=== PATIENT | female | born 1990 | race American Indian/Alaskan Native ===

== ENCOUNTER 2017-01-23 11:40 | Emergency (ER) | payer MEDICAID ==
[~2017-01-23] VITALS: Ht 167.6 cm; Wt 68.0 kg
[~2017-01-23 11:40] MED LIST: CYCL-36 PO; IBUP600 PO; LORTA5 PO; TRAM50TA PO
[2017-01-23 11:43] VITALS: BP 152/99; PULSE 111; RESP 24; TEMP 99.5; O2SAT 95
[2017-01-23] MEDS ORDERED: SODIUM CHLOR 0.9% 1000 ML INJ 1,000 ML IV SCH (11:53)
[2017-01-23] MEDS ORDERED: CYCL1TAB29 PO (11:55)
[2017-01-23] MEDS ORDERED: TRAM50TA PO ×2 (11:55→17:23)
[2017-01-23] MEDS ORDERED: SODIUM CHLORIDE 0.9% FLUSH 5 ML FLUSH IVF PRN (12:00)
[2017-01-23] MEDS ORDERED: MORPHINE SULFATE 4 MG/ML INJ IV PUSH ONE (12:00)
[2017-01-23] MEDS ORDERED: ONDANSETRON HCL 4 MG/2 ML VIAL IVP ONE (12:00)
[2017-01-23 12:06] VITALS: O2SAT 100
[2017-01-23 12:14] VITALS: BP 152/99; PULSE 80; RESP 22; O2SAT 97
--- NOTE | 2017-01-23 12:16 | PD ---
HPI Chief Complaint: Abdominal Pain Time Seen by Provider: 12:02 Travel History International Travel<30 days: No Contact w/Intl Traveler<30days: No Traveled to known affect area: No History of Present Illness HPI 26-year-old female with history of IBS, GERD, uterine fibroids presents to the ED for evaluation of less than 3 hour history of sudden onset 10/10, cramping lower abdominal pain. Accompanied by diaphoresis and nausea. Patient states that she was at work when the symptoms began. She states she was feeling fine beforehand, ate breakfast around 8 am. She denies fever, chills, changes in bowel habits, dysuria, back pain, vaginal discharge or odor. Patient uses Depo Provera contraception, states that she hasn't had a period in over a year. She endorses vaginal bleeding accompanying the pain today. Patient endorses similar episodes of pain when she was diagnosed with fibroids. Patient is followed by Dr. Sam, lab support service tech, in [place]. Last visit in November for Depo injection. PFSH Past Medical History Anxiety: Yes Cerebrovascular Accident: Yes Diminished Hearing: No Gastrointestinal Disorders: Yes (IBS) GERD: Yes Kidney Stones: Yes Reproductive: Yes (UTERINE FIBROID) Immunizations Current: Yes Myocardial Infarction: No (STATES SHE HAD ONE A YEAR AGO, EVAC STATES SENT TO PRIMARY AND PSYCH) Tetanus Vaccination: > 5 Years Influenza Vaccination: No ?: Not LMP: one year ago Para: 3 : 2 Ovarian Cysts: Yes Past Surgical History Abdominal Surgery: Yes (EX LAP) Social History Alcohol Use: Yes (OCCASIONALLY) Tobacco Use: Yes Substance Use: Yes (SMOKES MARIJUANA) Allergies-Medications (Allergen,Severity, Reaction): Coded Allergies: No Known Allergies (Unverified , 01/23/17) Reported Meds & Prescriptions Reported Meds & Active Scripts Active Tramadol (Tramadol HCl) 50 Mg Tab 50 Mg PO Q8H PRN Zofran Odt (Ondansetron Odt) 4 Mg Tab 4 Mg SL Q12HR PRN Reported Depo-Provera Inj (Medroxyprogesterone Inj) 150 Mg/Ml Inj 150 Mg IM Q90D Tramadol (Tramadol HCl) 50 Mg Tab 50 Mg PO BID PRN Flexeril (Cyclobenzaprine HCl) 10 Mg Tab 10 Mg PO BID Review of Systems Except as stated in HPI: all other systems reviewed are Neg Physical Exam Narrative GENERAL: Well-nourished, well-developed tearful, retching female sitting partially upright on the stretcher. SKIN: Cool and diaphoretic. HEAD: Normocephalic. EYES: No scleral icterus. No injection or drainage. DENTAL: Poor dentition. Erosion and dental caries of the visible teeth. NECK: Supple, trachea midline. No JVD or lymphadenopathy. CARDIOVASCULAR: Regular rate and rhythm without murmurs, gallops, or rubs. RESPIRATORY: Breath sounds clear and equal bilaterally. No accessory muscle use. GASTROINTESTINAL: Abdomen soft, nondistended. Active bowel sounds. TTP in the LLQ and suprapubic area. Suprapubic tenderness is absent when distraction. No palpable masses. No guarding. GENITOURINARY: Normal external genitalia without lesions or erythema. Vaginal vault with scant blood. No drainage. No visible vaginal tear. Cervical os was closed without drainage. No cervical motion tenderness. Uterus TENDER and nonenlarged. Bilateral adnexa nontender without palpable masses. MUSCULOSKELETAL: No cyanosis, or edema. BACK: Nontender without obvious deformity. No CVA tenderness. Data Data Last Documented VS Vital Signs Date Time Temp Pulse Resp B/P Pulse Ox O2 Delivery O2 Flow Rate FiO2 01/23/17 17:26 55 18 127/67 97 01/23/17 13:49 Room Air 01/23/17 11:43 99.5 Orders Complete Blood Count With Diff (01/23/17 11:53) Comprehensive Metabolic Panel (01/23/17 11:53) Lipase (01/23/17 11:53) Lactic Acid (01/23/17 11:53) Prothrombin Time / Inr (Pt) (01/23/17 11:53) Act Partial Throm Time (Ptt) (01/23/17 11:53) Urinalysis - C+S If Indicated (01/23/17 11:53) Ct Abd/Pel W Iv Contrast(Rout) (01/23/17 11:53) Iv Access Insert/Monitor (01/23/17 11:53) Ecg Monitoring (01/23/17 11:53) Oximetry (01/23/17 11:53) Morphine Inj (Morphine Inj) (01/23/17 12:00) Ondansetron Inj (Zofran Inj) (01/23/17 12:00) Sodium Chlor 0.9% 1000 Ml Inj (Ns 1000 M (01/23/17 11:53) Sodium Chloride 0.9% Flush (Ns Flush) (01/23/17 12:00) Ed Urine Pregnancytest Poc (01/23/17 11:53) Hydromorphone Pf Inj (Dilaudid Pf Inj) (01/23/17 12:30) Iohexol 350 Inj (Omnipaque 350 Inj) (01/23/17 14:18) Gc And Chlamydia Pcr (01/23/17 14:40) Wet Prep Profile (01/23/17 14:40) Lactic Acid (01/23/17 14:44) Ondansetron Inj (Zofran Inj) (01/23/17 15:00) Oxycodone-Acetamin 5-325 Mg (Percocet (01/23/17 15:00) NPO (01/23/17 14:55) Us Pelvis Comp W Dop Transvag (01/23/17 14:32) Labs Laboratory Tests Test 01/23/17 01/23/17 01/23/17 12:00 12:40 14:50 White Blood Count 7.3 TH/MM3 Red Blood Count 4.57 MIL/MM3 Hemoglobin 13.6 GM/DL Hematocrit 40.1 % Mean Corpuscular Volume 87.8 FL Mean Corpuscular Hemoglobin 29.8 PG Mean Corpuscular Hemoglobin 34.0 % Concent Red Cell Distribution Width 12.6 % Platelet Count 297 TH/MM3 Mean Platelet Volume 7.8 FL Neutrophils (%) (Auto) 44.9 % Lymphocytes (%) (Auto) 45.5 % Monocytes (%) (Auto) 7.6 % Eosinophils (%) (Auto) 1.6 % Basophils (%) (Auto) 0.4 % Neutrophils # (Auto) 3.3 TH/MM3 Lymphocytes # (Auto) 3.3 TH/MM3 Monocytes # (Auto) 0.6 TH/MM3 Eosinophils # (Auto) 0.1 TH/MM3 Basophils # (Auto) 0.0 TH/MM3 CBC Comment DIFF FINAL Differential Comment Prothrombin Time 11.2 SEC Prothromb Time International 1.0 RATIO Ratio Activated Partial 27.4 SEC Thromboplast Time Sodium Level 142 MEQ/L Potassium Level 3.6 MEQ/L Chloride Level 108 MEQ/L Carbon Dioxide Level 24.2 MEQ/L Anion Gap 10 MEQ/L Blood Urea Nitrogen 9 MG/DL Creatinine 0.80 MG/DL Estimat Glomerular Filtration 85 ML/MIN Rate Random Glucose 82 MG/DL Lactic Acid Level 2.8 mmol/L 1.1 mmol/L Calcium Level 9.4 MG/DL Total Bilirubin 0.4 MG/DL Aspartate Amino Transf 20 U/L (AST/SGOT) Alanine Aminotransferase 25 U/L (ALT/SGPT) Alkaline Phosphatase 105 U/L Total Protein 8.2 GM/DL Albumin 4.3 GM/DL Lipase 108 U/L Urine Color LIGHT-YELLOW Urine Turbidity CLEAR Urine pH 6.5 Urine Specific [place] 1.006 Urine Protein NEG mg/dL Urine Glucose (UA) NEG mg/dL Urine Ketones NEG mg/dL Urine Occult Blood TRACE Urine Nitrite NEG Urine Bilirubin NEG Urine Urobilinogen LESS THAN 2.0 MG/DL Urine Leukocyte Esterase NEG Urine RBC 1 /hpf Urine WBC LESS THAN 1 /hpf Urine Squamous Epithelial <1 /hpf Cells Microscopic Urinalysis Comment CULT NOT INDICATED Clue Cells (Wet Prep) NONE SEEN Vaginal Trichomonas (Wet Prep) NONE SEEN Vaginal Yeast (Wet Prep) NONE SEEN MDM Medical Decision Making Medical Screen Exam Complete: Yes Emergency Medical Condition: Yes Medical Record Reviewed: Yes Differential Diagnosis bowel obstruction versus ovarian torsion versus ruptured ovarian cyst versus Mittelsmerz versus vaginal tear versus cystocele versus malingering versus other Narrative Course 26-year-old female with history of uterine fibroids presents to the ED by private car for evaluation of less than 3 hour history of sudden onset 10/10, crampy lower abdominal pain. Accompanied by diaphoresis and nausea. She denies fever, chills, changes in bowel habits, dysuria, back pain, vaginal discharge or odor. Ate breakfast at 8 am. Patient uses Depo Provera contraception, LMP over a year ago. She endorses vaginal bleeding accompanying the pain today. Patient endorses similar episodes of pain when she was diagnosed with fibroids. Vitals reviewed. The patient is tachycardic on presentation, resolved in exam room. On exam the patient is sitting partially upright on the stretcher, tearful , retching. Skin is cool and diaphoretic. No appreciable M/R/G, breath sounds clear and equal bilaterally. Abdomen soft, nondistended, active bowel sounds. Tenderness to palpation of the left lower quadrant and suprapubic area which is absent with distraction. No palpable masses. No guarding. Normal external genitalia without lesions or erythema. Vaginal vault with scant blood. No drainage. Cervical os closed without drainage. No cervical motion tenderness. Uterus TENDER and nonenlarged. Bilateral adnexa nontender without palpable masses. IV was established. Patient was placed on continuous monitoring. She was administered a liter of saline, IV morphine and Zofran. Approximately 10 minutes later patient began to complain that her pain had returned. She states , "Morphine doesn't do shit for me." She was administered 0.5 mg of Dilaudid. CBC: WBC 7.3, Hgb 13.6. INR 1.0. CMP unremarkable. Lactic acid 2.8. Repeat 1.1 Lipase 108. Bedside urine test negative. UA: No culture indicated. Wet prep: Negative GC/Chlamydia: pending CT of abdomen: At least one small uterine fibroid likely. No significant fluid , hemorrhage seen in the uterine cavity. The rest of the CT of the abdomen and pelvis is normal per radiology read. US of the pelvis: Uterine leiomyoma measuring 2.2 cm. No definite torsion per radiology read. CT of the abdomen was delayed due to an incoming trauma. Given the negative CT scan, ultrasound of the pelvis was ordered to rule out ovarian torsion. Patient complains of continued nausea and pain. She was administered IV Toradol and 5 mg Lortab PO to supplement previously administered IV medications. I offered the patient empiric treatment of GC and chlamydia, which she declined. Unsure of the cause of her abdominal pain, but I life threatening sources have been investigated and ruled out. Prescribed a few doses of Zofran and a short course of 50 mg Toradol. The patient is instructed to follow up with the lab support service tech this week. She was cautioned not to drive while taking narcotics pain meds. She was provided a copy of her radiological studies. She indicated understanding of the instructions and is amenable to the plan of care. The patient is stable and discharged home. Diagnosis Primary Impression: Lower abdominal pain, unspecified Referrals: Kinesiologist Patient Instructions: Abdominal Pain (ED), General Instructions Additional Instructions: Rest, hydrate. Take pain and nausea medications as prescribed. Do not drive while taking pain medications. Follow up with the lab support service tech this week. Return to the ED for any urgent or emergent medical condition. Med/Other Pt SpecificInfo: Prescription(s) given Scripts Tramadol 50 Mg Tab50 Mg PO Q8H PRN (PAIN) #15 TAB Ref 0 Prov:Garth Dash MD 01/23/17 Ondansetron Odt (Zofran Odt)4 Mg Tab4 Mg SL Q12HR PRN (Nausea/Vomiting) #5 TAB Ref 0 Prov:Garth Dash MD 01/23/17 Disposition: 01 DISCHARGE HOME Condition: Stable Natalia Gamez Jan 23, 2017 12:16
[2017-01-23 12:18] LABS: AUTOMATED NEUTROPHIL # 3.3 TH/MM3 (1.8-7.7); BASOPHIL % 0.4 % (0.0-2.0); EOSINOPHIL # 0.1 TH/MM3 (0-0.4); EOSINOPHIL % 1.6 % (0.0-4.0); HEMATOCRIT 40.1 % (35.0-46.0); HEMO FLAGS DIFF FINAL; LYMPH % 45.5 % (9.0-44.0); LYMPHOCYTE # 3.3 TH/MM3 (1.0-4.8); MEAN CELL VOLUME 87.8 FL (80.0-100.0); MEAN CORPUSCULAR HEMOGLOBIN 29.8 PG (27.0-34.0); MONO % 7.6 % (0.0-8.0); NEUT % 44.9 % (16.0-70.0); PLATELET COUNT 297 TH/MM3 (150-450); RED BLOOD COUNT 4.57 MIL/MM3 (4.00-5.30); RED CELL DISTRIBUTION WIDTH 12.6 % (11.6-17.2); WHITE BLOOD COUNT 7.3 TH/MM3 (4.0-11.0)
[2017-01-23 12:28] LABS: APTT (PATIENT) 27.4 SEC (24.3-30.1); PROTHROMBIN TIME - PATIENT 11.2 SEC (9.8-11.6)
[2017-01-23] MEDS ORDERED: HYDROmorphone HCL PF 1 MG/ML VIAL IV PUSH ONE (12:30)
[2017-01-23 12:31] LABS: ANION GAP 10 MEQ/L (5-15); AST (GOT) 20 U/L (15-37); BICARBONATE 24.2 MEQ/L (21.0-32.0); BLOOD UREA NITROGEN 9 MG/DL (7-18); CHLORIDE 108 MEQ/L (98-107); GLOMERULAR FILTRATION RATE 85 ML/MIN (>89); POTASSIUM 3.6 MEQ/L (3.5-5.1); SODIUM (NA) 142 MEQ/L (136-145)
[2017-01-23 12:34] LABS: ALKALINE PHOSPHATASE 105 U/L (45-117); ALT (GPT) 25 U/L (10-53); TOTAL BILIRUBIN ADULT 0.4 MG/DL (0.2-1.0)
[2017-01-23] MEDS ORDERED: DEPO150I IM (12:45)
[2017-01-23 12:55] LABS: BLOOD, URINE TRACE (NEG); GLUCOSE,URINE NEG (NEG); KETONE, URINE NEG (NEG); NITRITE,URINE NEG (NEG); PH, URINE 6.5 (5.0-8.5); SQUAMOUS EPITHELIAL CELL URINE <1 /hpf (0-5); URINE COLOR LIGHT-YELLOW (YELLW/STRAW)
[2017-01-23 12:58] VITALS: BP 111/59; PULSE 57; RESP 18; O2SAT 100
[2017-01-23 13:33] LABS: COMMENT (UR) CULT NOT INDICATED; CULTURE IF INDICATED CULT NOT INDICATED
[2017-01-23 13:49] VITALS: BP 112/72; PULSE 67; RESP 18; O2SAT 98
[2017-01-23] MEDS ORDERED: IOHEXOL 350 MG/ML 10 ML VIAL (for RAD DIAG) IV ONE (14:18)
--- NOTE | 2017-01-23 14:30 | RADRPT ---
EXAM DATE/TIME: 01/23/2017 14:02 [facility] COMPARISON: US PELVIS,COMP,W DOPLR, TRANS VAG, September 20, 2016, 14:01. CT ABDOMEN & PELVIS W/O CONTRAST, Octobe r 2015, 12:42. CT ABDOMEN & PELVIS W CONTRAST, February 19, 2016, 15:17. INDICATIONS : Lower abdomen pain with vaginal bleedind. History of fibroids. IV CONTRAST: 95 cc Omnipaque 350 (iohexol) IV ORAL CONTRAST: No oral contrast ingested. RADIATION DOSE: 6.81 CTDIvol (mGy) MEDICAL HISTORY : Cerebrovascular disease. Fibroids SURGICAL HISTORY : None. ENCOUNTER: Initial ACUITY: 1 day PAIN SCALE: 10/10 LOCATION: Bilateral lower abdomen TECHNIQUE: Volumetric scanning of the abdomen and pelvis was performed. Using automated exposure control and ad justment of the mA and/or kV according to patient size, radiation dose was kept as low as reasonably achievable to obtain optimal diagnostic quality images. FINDINGS: LOWER LUNGS: The visualized lower lungs are clear. LIVER: Homogeneous density without lesion. There is no dilation of the biliary tree. No calcified gallston es. SPLEEN: Normal size without lesion. PANCREAS: Within normal limits. KIDNEYS: Normal in size and shape. There is no mass, stone or hydronephrosis. ADRENAL GLANDS: Within normal limits. VASCULAR: There is no aortic aneurysm. BOWEL/MESENTERY: The stomach, small bowel, and colon demonstrate no acute abnormality. There is no free intraperitone al air or fluid. ABDOMINAL WALL: Within normal limits. RETROPERITONEUM: There is no lymphadenopathy. BLADDER: No wall thickening or mass. REPRODUCTIVE: Within normal limits. INGUINAL: 2.7 cm fibroid suspected left fundus. No fluid/hemorrhage seen in the uterine cavity. There is no cj e fluid in the pelvic cul-de-sac. MUSCULOSKELETAL: Within normal limits for patient age. CONCLUSION: At least one small uterine fibroid likely. No significant fluid/hemorrhage seen in the uterine cavity . The rest of the CT of the abdomen and pelvis is normal. Harrison Rollins MD on January 23, 2017 at 14:26 Board Certified Radiologist. This report was verified electronically.
[2017-01-23] MEDS ORDERED: oxyCODONE/ACETAMINOPHEN 5 MG/325 MG TAB PO ONE (15:00)
[2017-01-23] MEDS ORDERED: ONDANSETRON HCL 4 MG/2 ML VIAL IV PUSH ONE (15:00)
--- NOTE | 2017-01-23 17:16 | RADRPT ---
EXAM DATE/TIME: 01/23/2017 16:17 [facility] COMPARISON: No previous studies available for comparison. INDICATIONS : Pelvic pain. MEDICAL HISTORY : Gastroesophageal reflux disease. . Renal calculi. Uterine fibroid. Cerebrovascular accident. Ovarian cyst. x 2. Anxiety. SURGICAL HISTORY : Exploratory laparotomy. ENCOUNTER: Subsequent ACUITY: 1 day PAIN SCORE: 9/10 LOCATION: Bilateral pelvis MEASUREMENTS: UTERUS: 7.8 x 5.8 x 4.1 cm ENDOMETRIAL STRIPE: 2 mm RIGHT OVARY: 3.9 x 1.8 x 1.5 cm LEFT OVARY: 3.3 x 1.5 x 1.5 cm FINDINGS: UTERUS: The myometrium has homogeneous echotexture hypoechoic lesion measuring 22 x 20 x 15 mm in the lower u terine segment. RIGHT OVARY: Ovary contains no mass or significant cystic lesion. Normal flow. LEFT OVARY: Ovary contains no mass or significant cystic lesion. Normal flow. MISCELLANEOUS: No free fluid. CONCLUSION: 1. Uterine leiomyoma measuring 2.2 cm. 2. No definite torsion. Lokesh Diehl MD on January 23, 2017 at 17:10 Board Certified Radiologist. This report was verified electronically.
[2017-01-23] MEDS ORDERED: ZOFR4TAB3 SL (17:23)
[2017-01-23 17:26] VITALS: BP 127/67
[2017-01-23 22:18] LABS: CHLAMYDIA PCR NOT DETECTED (NOT DETECT); NEISSERIA PCR NOT DETECTED (NOT DETECT)
== END 2017-01-23 18:15 | disposition home or self-care (01) ==
LOC: NEPC 11:40
DX: R10.30 Lower abdominal pain, unspecified (principal); D25.9 Leiomyoma of uterus, unspecified; F12.10 Cannabis abuse, uncomplicated; Z72.0 Tobacco use; Z86.73 Personal history of transient ischemic attack (TIA), and cerebral infarction without residual deficits; Z87.442 Personal history of urinary calculi
CPT/HCPCS: 74177; 76830; 76856; 80053; 81001; 83605; 83690; 84703; 85025; 85610; 85730; 87210; 87491; 87591; 93975; 96361; 96374; 96375; 96376; 99284; J1170; J2270; J2405; J7030; Q9967

== ENCOUNTER 2017-03-05 04:15 | Emergency (ER) | payer MEDICAID, OTHER ==
[~2017-03-05] VITALS: Ht 167.6 cm; Wt 68.0 kg
[~2017-03-05 04:15] MED LIST changes: -CYCL-36 PO; +CYCL1TAB29 PO; +DEPO150I IM; -IBUP600 PO; -LORTA5 PO; +ZOFR4TAB3 SL
[2017-03-05 04:19] VITALS: BP 117/74; PULSE 67; RESP 20; O2SAT 100
[2017-03-05 04:49] VITALS: TEMP 98.1
[2017-03-05] MEDS ORDERED: ACETAMINOPHEN/CODEINE 300 MG/30 MG TAB PO ONE (05:00)
[2017-03-05] MEDS ORDERED: IBUPROFEN 800 MG TAB PO ONE (05:00)
[2017-03-05] MEDS ORDERED: PENI500T PO (05:03)
[2017-03-05] MEDS ORDERED: MAGICADU2 SWISH-SWAL (05:03)
[2017-03-05] MEDS ORDERED: IBUP800T23 PO (05:03)
--- NOTE | 2017-03-05 05:06 | PD ---
HPI Chief Complaint: Oral / Dental Pain or Problem Time Seen by Provider: 04:58 Travel History International Travel<30 days: No Contact w/Intl Traveler<30days: No Traveled to known affect area: No History of Present Illness HPI 26-year-old female presents for evaluation of dental pain. Symptoms started a few days ago and has progressively gotten worse. Pain is a throbbing pain that seems to start at the right maxillary third molar and radiates to the right ear and side of the face. Pain is worse with chewing. Denies any dental trauma. She does use tobacco products. No fevers. No other complaints. PFSH Past Medical History Anxiety: Yes Cerebrovascular Accident: Yes Diminished Hearing: No Gastrointestinal Disorders: Yes (IBS) GERD: Yes Kidney Stones: Yes Reproductive: Yes (UTERINE FIBROID) Immunizations Current: Yes Myocardial Infarction: No (STATES SHE HAD ONE A YEAR AGO, EVAC STATES SENT TO PRIMARY AND PSYCH) Tetanus Vaccination: > 5 Years Influenza Vaccination: No ?: Not Para: 3 : 2 Ovarian Cysts: Yes Past Surgical History Abdominal Surgery: Yes (EX LAP) Social History Alcohol Use: Yes (OCCASIONALLY) Tobacco Use: Yes Substance Use: Yes (SMOKES MARIJUANA) Allergies-Medications (Allergen,Severity, Reaction): Coded Allergies: No Known Allergies (Unverified , 03/05/17) Reported Meds & Prescriptions Reported Meds & Active Scripts Active Ibuprofen 800 Mg Tab 800 Mg PO Q6HR PRN Magic Mouthwash Adult Liq (Multi-Ingredient Mouthwash/Gargle) 120 Ml Susp 10 Ml SWISH-SWAL ACHS Each 5mL contains: Nystatin 200,000units, Diphenhydramine 4.25mg, Viscous Lidocaine 10mg, Sultana syrup 0.8 mL Penicillin V Potassium 500 Mg Tab 500 Mg PO Q8H 10 Days Review of Systems General / Constitutional: No: Fever HENT: Positive: Dental Difficulties, No: Congestion Physical Exam Narrative GENERAL: Well-developed well-nourished female in no acute distress SKIN: Warm and dry. HEAD: Atraumatic. Normocephalic. EYES: Pupils equal and round. No scleral icterus. No injection or drainage. ENT: No nasal bleeding or discharge. Mucous membranes pink and moist. The right maxillary third Third molar is tender, somewhat decayed. No gingival edema, no facial edema, no sublingual edema NECK: Trachea midline. No JVD. No lymphadenopathy, no submandibular edema Data Data Last Documented VS Vital Signs Date Time Temp Pulse Resp B/P Pulse Ox O2 Delivery O2 Flow Rate FiO2 03/05/17 04:49 98.1 03/05/17 04:19 67 20 117/74 100 Room Air Orders Acetamin-Codeine 300-30 Mg (Tylenol-Code (03/05/17 05:00) Ibuprofen (Motrin) (03/05/17 05:00) [facility] Medical Decision Making Medical Screen Exam Complete: Yes Emergency Medical Condition: Yes Medical Record Reviewed: Yes Differential Diagnosis Dental caries, polypi this, pericoronitis, periodontal abscess, impacted molar Narrative Course 26-year-old female presents with a few days of dental pain. She will be discharged with ibuprofen, Magic mouthwash, penicillin, encouraged to follow-up with a dentist for definitive therapy. Diagnosis Primary Impression: Dental caries Additional Instructions: Medication as prescribed. Avoid tobacco products. Follow-up with a dentist for definitive therapy. Med/Other Pt SpecificInfo: Prescription(s) given Scripts Ibuprofen 800 Mg Pet842 Mg PO Q6HR PRN (PAIN) #40 TAB Ref 0 Prov:Vincent Rankin MD 03/05/17 Rhovgudj-Ygnymlueeozyhuo-Hfvckkugb Liq (Magic Mouthwash Adult Liq)120 Ml Susp10 Ml SWISH-SWAL ACHS #120 ML Ref 1 Each 5mL contains: Nystatin 200,000units, Diphenhydramine 4.25mg, Viscous Lidocaine 10mg, Sultana syrup 0.8 mL Prov:Vincent Rankin MD 03/05/17 Penicillin V Potassium 500 Mg Gsb094 Mg PO Q8H 10 Days Ref 0 Prov:Vincent Rankin MD 03/05/17 Disposition: 01 DISCHARGE HOME Condition: Stable Angelo Ward Mar 05, 2017 05:06
== END 2017-03-05 05:14 | disposition home or self-care (01) ==
LOC: NEPK 04:15
DX: K02.9 Dental caries, unspecified (principal); F12.10 Cannabis abuse, uncomplicated; Z72.0 Tobacco use; Z87.442 Personal history of urinary calculi; K58.9 Irritable bowel syndrome, unspecified; Z86.73 Personal history of transient ischemic attack (TIA), and cerebral infarction without residual deficits
CPT/HCPCS: 99282

== ENCOUNTER 2017-06-26 22:11 | Emergency (ER) | payer MEDICAID, OTHER ==
[~2017-06-26] VITALS: Ht 167.6 cm; Wt 68.0 kg
[~2017-06-26 22:11] MED LIST changes: -CYCL1TAB29 PO; -DEPO150I IM; +IBUP800T23 PO; +MAGICADU2 SWISH-SWAL; +PENI500T PO; -TRAM50TA PO; -ZOFR4TAB3 SL
[2017-06-26 22:24] VITALS: BP 151/96; PULSE 93; RESP 24; TEMP 98.9; O2SAT 99
[2017-06-26] MEDS ORDERED: TRAM50TA PO (22:41)
--- NOTE | 2017-06-26 22:44 | PD ---
HPI Chief Complaint: Back/ Neck Pain or Injury Time Seen by Provider: 22:36 Travel History International Travel<30 days: No Contact w/Intl Traveler<30days: No Traveled to known affect area: No History of Present Illness HPI 26-year-old female complains of low back pain. Patient states that she fell at work about an hour prior to arrival. Patient complains of severe low back pain. Patient denies any head injury. Patient denies any headache or neck pain. Patient denies any chest pain or shortness of breath. Patient denies abdominal pain. Patient denies any extremity injury. Patient denies any focal weakness or numbness of the extremity. On a scale of 1-10 the pain is a 10. PFSH Past Medical History Anxiety: Yes Cerebrovascular Accident: Yes Diminished Hearing: No Gastrointestinal Disorders: Yes (IBS) GERD: Yes Kidney Stones: Yes Reproductive: Yes (UTERINE FIBROID) Immunizations Current: Yes Myocardial Infarction: Yes (STATES SHE HAD ONE A YEAR AGO, EVAC STATES SENT TO PRIMARY AND PSYCH) Tetanus Vaccination: > 5 Years Influenza Vaccination: No ?: Not LMP: current : 5 Para: 3 : 2 Ovarian Cysts: Yes Past Surgical History Abdominal Surgery: Yes (EX LAP) Social History Alcohol Use: Yes (OCCASIONALLY) Tobacco Use: Yes (1/2 ppd) Substance Use: Yes (SMOKES MARIJUANA) Allergies-Medications (Allergen,Severity, Reaction): Coded Allergies: No Known Allergies (Unverified , 06/26/17) Reported Meds & Prescriptions Reported Meds & Active Scripts Active Ibuprofen 800 Mg Tab 800 Mg PO Q6HR PRN Reported Tramadol (Tramadol HCl) 50 Mg Tab 50 Mg PO Q4H PRN Review of Systems General / Constitutional: No: Fever Eyes: No: Visual changes HENT: No: Headaches Cardiovascular: No: Chest Pain or Discomfort Respiratory: No: Shortness of Breath Gastrointestinal: No: Abdominal Pain Genitourinary: No: Dysuria Musculoskeletal: No: Pain Skin: No Rash Neurologic: No: Weakness Psychiatric: No: Depression Endocrine: No: Polydipsia Hematologic/Lymphatic: No: Easy Bruising Physical Exam Narrative GENERAL: Well-nourished, well-developed patient. SKIN: Focused skin assessment warm/dry. HEAD: Normocephalic. EYES: No scleral icterus. No injection or drainage. NECK: Supple, trachea midline. No JVD or lymphadenopathy. CARDIOVASCULAR: Regular rate and rhythm without murmurs, gallops, or rubs. RESPIRATORY: Breath sounds equal bilaterally. No accessory muscle use. GASTROINTESTINAL: Abdomen soft, non-tender, nondistended. MUSCULOSKELETAL: No cyanosis, or edema. BACK: Moderate tenderness on palpation lumbar area, without obvious deformity. No CVA tenderness. Negative straight leg raising. Neurologic exam normal. Data Data Last Documented VS Vital Signs Date Time Temp Pulse Resp B/P Pulse Ox O2 Delivery O2 Flow Rate FiO2 06/26/17 22:24 98.9 93 24 151/[address] Lumb Spine W/O Contrast (06/26/17 22:40) Morphine Inj (Morphine Inj) (06/26/17 22:45) Ondansetron Odt (Zofran Odt) (06/26/17 22:45) MDM Medical Decision Making Medical Screen Exam Complete: Yes Emergency Medical Condition: Yes Interpretation(s) Last Impressions Lumbar Spine CT 06/26/17 2240 Signed Impressions: Service Date/Time: Monday, June 26, 2017 23:29 - CONCLUSION: Negative trauma study with no acute fracture or malalignment. Issa Vanessa MD Differential Diagnosis Differential diagnosis including contusion, strain, fracture, HNP. Narrative Course 26-year-old female with low back pain. Morphine 4 mg IM. Zofran 4 mg ODT. Diagnosis Primary Impression: Contusion of lower back Qualified Code: S30.0XXA - Contusion of lower back, initial encounter Patient Instructions: General Instructions Additional Instructions: Take medication as needed for pain. Follow-up with an orthopedist if persistent problem. Off work tomorrow. Light duty, no heavy lifting for one week. Med/Other Pt SpecificInfo: Prescription(s) given Scripts Methocarbamol (Robaxin)750 Mg Apb047 Mg PO QID #40 TAB Prov:Alok Canales MD 06/27/17 Meloxicam (Mobic)15 Mg Tab15 Mg PO DAILY #20 TAB Prov:Alok Canales MD 06/27/17 Disposition: 01 DISCHARGE HOME Condition: Stable Alok Canales MD Jun 26, 2017 22:44
[2017-06-26] MEDS ORDERED: MORPHINE SULFATE 4 MG/ML INJ IM ONE (22:45)
[2017-06-26] MEDS ORDERED: ONDANSETRON ODT 4 MG TAB PO ONE (22:45)
--- NOTE | 2017-06-26 23:57 | RADRPT ---
EXAM DATE/TIME: 06/26/2017 23:29 [facility] COMPARISON: No previous studies available for comparison. INDICATIONS : Lower back pain after fall. RADIATION DOSE: 35.86 CTDIvol (mGy) MEDICAL HISTORY : Cerebrovascular disease. SURGICAL HISTORY : None. ENCOUNTER: Initial ACUITY: 1 day PAIN SCALE: 7/10 LOCATION: lower back TECHNIQUE: Volumetric scanning of the lumbar spine was performed. Multiplanar reconstructions in the sagittal, coronal and oblique axial planes were performed. Using automated exposure control and adjustment of the mA and/or kV according to patient size, radiation dose was kept as low as reasonab ly achievable to obtain optimal diagnostic quality images. DICOM format image data is available [facility] for review and comparison. FINDINGS: VERTEBRAE: Normal vertebral body height. ALIGNMENT: No evidence of subluxation. T12-L1: The thecal sac has a normal diameter. No evidence of disc bulge or protrusion. The neural foramina are patent bilaterally. L1-L2: The thecal sac has a normal diameter. No evidence of disc bulge or protrusion. The neural foramina are patent bilaterally. L2-L3: The thecal sac has a normal diameter. No evidence of disc bulge or protrusion. The neural foramina are patent bilaterally. L3-L4: The thecal sac has a normal diameter. No evidence of disc bulge or protrusion. The neural foramina are patent bilaterally. L4-L5: The thecal sac has a normal diameter. No evidence of disc bulge or protrusion. The neural foramina are patent bilaterally. L5-S1: The thecal sac has a normal diameter. No evidence of disc bulge or protrusion. The neural foramina are patent bilaterally. The visualized portions of the upper sacrum are intact. CONCLUSION: Negative trauma study with no acute fracture or malalignment. Issa Vanessa MD on June 26, 2017 at 23:53 Board Certified Radiologist. This report was verified electronically.
[2017-06-27] MEDS ORDERED: MOBI15TA PO (00:26)
[2017-06-27] MEDS ORDERED: ROBA750T PO (00:26)
== END 2017-06-27 01:04 | disposition home or self-care (01) ==
LOC: NEPC 22:11
DX: S30.0XXA Contusion of lower back and pelvis, initial encounter (principal); W19.XXXA Unspecified fall, initial encounter
CPT/HCPCS: 72131; 96372; 99285; J2270

== ENCOUNTER 2017-09-21 14:30 | Emergency (ER) | payer MEDICAID ==
[~2017-09-21] VITALS: Ht 167.6 cm; Wt 65.0 kg
[~2017-09-21 14:30] MED LIST changes: -MAGICADU2 SWISH-SWAL; +MOBI15TA PO; -PENI500T PO; +ROBA750T PO; +TRAM50TA PO
[2017-09-21 14:31] VITALS: BP 126/58; PULSE 78; RESP 16; TEMP 98.7; O2SAT 100
--- NOTE | 2017-09-21 15:12 | PD ---
HPI Chief Complaint: Lump, Cyst, Hernia Time Seen by Provider: 15:11 Travel History International Travel<30 days: No Contact w/Intl Traveler<30days: No Traveled to known affect area: No History of Present Illness HPI 26-year-old female presents the emergency department with tender erythematous raised bump to the left anterior lateral chest/axilla which she states started about a week ago. No specific injury is noted. No fever, chills, or history of MRSA in the past. Patient states her boyfriend was treated for MRSA approximately one month ago. Patient states she started hot packing and drawing salve to the area without improvement. She states there is been no improvement, and pain is worse today. Pain is currently about a 7 out of 10. It is worse with movement. She has no known drug allergies PFSH Past Medical History Anxiety: Yes Cerebrovascular Accident: Yes Diminished Hearing: No Gastrointestinal Disorders: Yes (IBS) GERD: Yes Kidney Stones: Yes Reproductive: Yes (UTERINE FIBROID) Immunizations Current: Yes Myocardial Infarction: Yes (STATES SHE HAD ONE A YEAR AGO, EVAC STATES SENT TO PRIMARY AND PSYCH) : 5 Para: 3 : 2 Ovarian Cysts: Yes Past Surgical History Abdominal Surgery: Yes (EX LAP) Social History Alcohol Use: Yes (OCCASIONALLY) Tobacco Use: Yes (1/2 ppd) Substance Use: Yes (SMOKES MARIJUANA) Allergies-Medications (Allergen,Severity, Reaction): Coded Allergies: No Known Allergies (Unverified , 09/21/17) Reported Meds & Prescriptions Reported Meds & Active Scripts Active Bactrim DS (Sulfamethoxazole-Trimethoprim) 800-160 Mg Tab 1 Tab PO BID Reported Tramadol (Tramadol HCl) 50 Mg Tab 50 Mg PO Q4H PRN Review of Systems Except as stated in HPI: all other systems reviewed are Neg General / Constitutional: No: Fever Eyes: No: Visual changes HENT: No: Headaches Cardiovascular: No: Chest Pain or Discomfort Respiratory: No: Shortness of Breath Gastrointestinal: No: Abdominal Pain Genitourinary: No: Dysuria Musculoskeletal: No: Pain Skin: Positive Lesions (see history present illness), No Rash Neurologic: No: Weakness Psychiatric: No: Depression Endocrine: No: Polydipsia Hematologic/Lymphatic: No: Easy Bruising Physical Exam Narrative GENERAL: Patient appears no acute distress. SKIN: Warm and dry. Patient has a 2 cm round indurated erythematous warm tender lesion consistent with a cyst the left lateral chest/axilla without pointing. HEAD: Atraumatic. Normocephalic. EYES: Pupils equal and round. No scleral icterus. No injection or drainage. ENT: No nasal bleeding or discharge. Mucous membranes pink and moist. Pharynx is clear. Airway is patent. NECK: Trachea midline. Supple nontender without lymphadenopathy CARDIOVASCULAR: Regular rate and rhythm. RESPIRATORY: No accessory muscle use. Clear to auscultation. Breath sounds equal bilaterally. MUSCULOSKELETAL: Extremities without clubbing, cyanosis, or edema. No obvious deformities. NEUROLOGICAL: Awake and alert. No obvious cranial nerve deficits. Motor grossly within normal limits. Five out of 5 muscle strength in the arms and legs. Normal speech. PSYCHIATRIC: Appropriate mood and affect; insight and judgment normal. Data Data Last Documented VS Vital Signs Date Time Temp Pulse Resp B/P (MAP) Pulse Ox O2 Delivery O2 Flow Rate FiO2 09/21/17 14:31 98.7 78 16 126/58 (80) 100 Room Air Orders Orders Wound Culture And Gram Stain (09/21/17 15:53) Ed Discharge Order (09/21/17 15:55) MDM Medical Decision Making Medical Screen Exam Complete: Yes Emergency Medical Condition: Yes Differential Diagnosis Cellulitis. Abscess. MRSA. Narrative Course I&D of abscess performed and packing placed. Wound care is discussed with the patient. Patient placed on Bactrim DS twice a day 7 days. Patient take ibuprofen and Tylenol as needed. Patient should follow-up in 2 days for a wound check and packing removal. Patient follow-up sooner with any worsening symptoms as needed. Procedures Procedure Narrative After the risks and benefits were discussed the following procedure was performed: INCISION AND DRAINAGE OF ABSCESS: The area was prepped and was sterilely draped. A subcutaneous wheal of 2% % Xylocaine epinephrine with a total number 3 mL was used to anesthetize the area. The area was properly anesthetized. A number 11 scalpel was used to make a 0.5-cm incision across the area of the abscess. Cultures were obtained. The abscess was drained an irrigated with normal saline. Quarter inch iodoform packing was placed in the wound. Sterile dressing applied. Patient advised to have packing removed in two days. Diagnosis Primary Impression: Abscess of left axilla Referrals: Primary Care Physician Patient Instructions: Abscess Incision and Drainage (DC), General Instructions Additional Instructions: I&D of abscess performed and packing placed. Wound care is discussed with the patient. Patient placed on Bactrim DS twice a day 7 days. Patient take ibuprofen and Tylenol as needed. Patient should follow-up in 2 days for a wound check and packing removal. Patient follow-up sooner with any worsening symptoms as needed. Med/Other Pt SpecificInfo: Prescription(s) given, Wound Care Scripts Sulfamethoxazole-Trimethoprim (Bactrim DS) 800-160 Mg Tab 1 TAB PO BID for Infection, #14 TAB 0 Refills Prov: Debi Ryan MD 09/21/17 Disposition: 01 DISCHARGE HOME Condition: Stable Sachin Solano Sep 21, 2017 15:12
[2017-09-21] MEDS ORDERED: BACT800T5 PO (15:54)
== END 2017-09-21 16:15 | disposition home or self-care (01) ==
LOC: NEPK 14:30
DX: L02.412 Cutaneous abscess of left axilla (principal); A49.02 Methicillin resistant Staphylococcus aureus infection, unspecified site; F41.9 Anxiety disorder, unspecified; K21.9 Gastro-esophageal reflux disease without esophagitis; I25.2 Old myocardial infarction; F17.200 Nicotine dependence, unspecified, uncomplicated; Z86.73 Personal history of transient ischemic attack (TIA), and cerebral infarction without residual deficits; Z87.19 Personal history of other diseases of the digestive system
CPT/HCPCS: 10061; 86403; 87070; 87186; 87205

== ENCOUNTER 2017-09-23 09:41 | Emergency (ER) | payer MEDICAID ==
[~2017-09-23] VITALS: Ht 167.6 cm; Wt 70.0 kg
[~2017-09-23 09:41] MED LIST changes: +BACT800T5 PO; -IBUP800T23 PO; -MOBI15TA PO; -ROBA750T PO
[2017-09-23 09:43] VITALS: BP 115/75; PULSE 67; RESP 12; TEMP 98.9; O2SAT 99
--- NOTE | 2017-09-23 10:03 | PD ---
HPI Chief Complaint: Skin Problem Time Seen by Provider: 10:02 Travel History International Travel<30 days: No Contact w/Intl Traveler<30days: No Traveled to known affect area: No History of Present Illness HPI 26-year-old female presents to the emergency department requesting abscess packing removal that was placed 2 days ago. She reports improvement to the abscess. Has been taking Bactrim as prescribed. Denies fever, vomiting. When taking ibuprofen for symptom management. Describes the pain as a throbbing sensation. Rates the pain 5/10. Pain is aggravated with palpation of the area. Has no other medical complaints. No known allergies. No other modifying factors or associated signs and symptoms. PFSH Past Medical History Anxiety: Yes Cerebrovascular Accident: Yes Diminished Hearing: No Gastrointestinal Disorders: Yes (IBS) GERD: Yes Kidney Stones: Yes Reproductive: Yes (UTERINE FIBROID) Immunizations Current: Yes Myocardial Infarction: Yes (STATES SHE HAD ONE A YEAR AGO, EVAC STATES SENT TO PRIMARY AND PSYCH) : 5 Para: 3 : 2 Ovarian Cysts: Yes Past Surgical History Abdominal Surgery: Yes (EX LAP) Social History Alcohol Use: Yes (OCCASIONALLY) Tobacco Use: Yes (1/2 ppd) Substance Use: Yes (SMOKES MARIJUANA) Allergies-Medications (Allergen,Severity, Reaction): Coded Allergies: No Known Allergies (Unverified , 09/21/17) Reported Meds & Prescriptions Reported Meds & Active Scripts Active Bactrim DS (Sulfamethoxazole-Trimethoprim) 800-160 Mg Tab 1 Tab PO BID Reported Tramadol (Tramadol HCl) 50 Mg Tab 50 Mg PO Q4H PRN Review of Systems Except as stated in HPI: all other systems reviewed are Neg Physical Exam Narrative GENERAL: Well-nourished, well-developed female patient, in no acute distress; afebrile, nontoxic-appearing SKIN: There is an indurated area to the left axilla post incision and drainage with iodoform packing intact. There is a zone of inflammation around it but no lymphangitis. HEAD: Atraumatic. Normocephalic. EYES: Pupils equal and round. No scleral icterus. No injection or drainage. ENT: Mucosa pink and moist. Airway patent. NECK: Trachea midline. CARDIOVASCULAR: Regular rate. RESPIRATORY: No accessory muscle use. GASTROINTESTINAL: Flat. MUSCULOSKELETAL: No obvious deformities. No clubbing. No cyanosis. No edema. NEUROLOGICAL: Awake and alert. Oriented 3. No obvious cranial nerve deficits. Motor grossly within normal limits. Normal speech. PSYCHIATRIC: Appropriate mood and affect; insight and judgment normal. Data Data Last Documented VS Vital Signs Date Time Temp Pulse Resp B/P (MAP) Pulse Ox O2 Delivery O2 Flow Rate FiO2 09/23/17 09:43 98.9 67 12 115/75 (88) 99 Orders Orders Ed Discharge Order (09/23/17 10:03) Ibuprofen (Motrin) (09/23/17 10:15) MDM Medical Decision Making Medical Screen Exam Complete: Yes Emergency Medical Condition: Yes Medical Record Reviewed: Yes Differential Diagnosis Encounter for abscess packing removal, wound recheck, medical clearance Narrative Course 26-year-old female presents for abscess packing removal post I&D on September 21. I reviewed the microbiology report in the wound culture grew MRSA. Patient is on Bactrim which is susceptible. Patient has been taking Bactrim as prescribed and reports improvement to the abscess. Patient is afebrile and nontoxic-appearing. Denies fever, vomiting. Instructed patient to continue Bactrim as prescribed. Ibuprofen administered in the ER. Instructed patient to follow up with primary care provider. Patient verbalizes understanding and agreement with treatment plan. Patient is medically cleared and stable for discharge. Discussed reasons to return to the emergency department. Patient agrees with treatment plan. The patients vital signs are stable and the patient is stable for outpatient follow-up and treatment. Patient discharged home, stable and in no acute distress. Diagnosis Primary Impression: Encounter for abscess packing removal Referrals: [facility] Primary Care Physician Patient Instructions: Abscess (ED), Abscess Follow-up (ED), General Instructions Departure Forms: Tests/Procedures, Work Release Enter return to work date: Sep 24, 2017 Additional Instructions: Complete full course of antibiotics Warm compresses to the affected area Keep area clean and dry Ibuprofen or Tylenol as directed and as needed for pain and inflammation Follow-up with primary care provider Return to emergency department immediately with worsening of symptoms Med/Other Pt SpecificInfo: No Change to Meds, No Meds Exist/No RX given Disposition: 01 DISCHARGE HOME Condition: Stable Mi Rebollar Sep 23, 2017 10:03
[2017-09-23] MEDS ORDERED: IBUPROFEN 800 MG TAB PO ONE (10:15)
== END 2017-09-23 10:15 | disposition home or self-care (01) ==
LOC: NEPK 09:41
DX: Z51.89 Encounter for other specified aftercare (principal); L02.412 Cutaneous abscess of left axilla; F41.9 Anxiety disorder, unspecified; K21.9 Gastro-esophageal reflux disease without esophagitis; I25.2 Old myocardial infarction; F17.200 Nicotine dependence, unspecified, uncomplicated; Z87.442 Personal history of urinary calculi; Z86.73 Personal history of transient ischemic attack (TIA), and cerebral infarction without residual deficits; Z87.19 Personal history of other diseases of the digestive system
CPT/HCPCS: 99281

== ENCOUNTER 2017-11-09 10:30 | Emergency (ER) | payer MEDICAID ==
[~2017-11-09] VITALS: Ht 167.6 cm; Wt 67.0 kg
[2017-11-09 10:31] VITALS: BP 126/76; PULSE 71; RESP 12; TEMP 98.1; O2SAT 100
[2017-11-09] MEDS ORDERED: ZOFR4TAB PO (10:46)
[2017-11-09] MEDS ORDERED: SODIUM CHLOR 0.9% 1000 ML INJ 1,000 ML IV SCH (10:59)
[2017-11-09] MEDS ORDERED: SODIUM CHLOR 0.9% 1000 ML INJ 1,000 ML IV ONE (11:00)
[2017-11-09] MEDS ORDERED: SODIUM CHLORIDE 0.9% FLUSH 10 ML FLUSH IV FLUSH PRN (11:00)
[2017-11-09] MEDS ORDERED: FAMOTIDINE 20 MG/2 ML VIAL IV PUSH ONE (11:00)
[2017-11-09] MEDS ORDERED: ALUMINUM/MAGNESIUM/SIMETH 30 ML CUP PO ONE (11:00)
[2017-11-09] MEDS ORDERED: DICYCLOMINE HCL 10 MG CAP PO ONE (11:00)
[2017-11-09] MEDS ORDERED: ONDANSETRON HCL 4 MG/2 ML VIAL IVP ONE (11:00)
[2017-11-09] MEDS ORDERED: LIDOCAINE VISCOUS 2% SOLN 15 ML UDC PO ONE (11:00)
[2017-11-09 11:10] VITALS: RESP 16; O2SAT 99
--- NOTE | 2017-11-09 11:14 | PD ---
HPI Chief Complaint: GI Complaint Time Seen by Provider: 10:54 Travel History International Travel<30 days: No Contact w/Intl Traveler<30days: No History of Present Illness HPI Patient is a 26-year-old female who presents to emergency room complaints of nausea, vomiting and diarrhea. Patient reports that for the past 3 days, she has been feeling sick. Patient reports that she has not been able to eat or drink or hold anything down. She reports no abdominal pain at this time, reports that her abdomen does feel crampy. Patient reports that her children as well as her mother was sick with similar symptoms prior to onset of her symptoms. Reports subjective fevers and chills. Denies cough or congestion. Denies urinary urgency or frequency. Denies vaginal discharge/bleeding. No recent travels/trips. PFSH Past Medical History Anxiety: Yes Cerebrovascular Accident: Yes Diminished Hearing: No Gastrointestinal Disorders: Yes (IBS) GERD: Yes Kidney Stones: Yes Reproductive: Yes (UTERINE FIBROID) Immunizations Current: Yes Myocardial Infarction: Yes (STATES SHE HAD ONE A YEAR AGO, EVAC STATES SENT TO PRIMARY AND PSYCH) Tetanus Vaccination: > 5 Years Influenza Vaccination: No ?: Unknown LMP: 09/2017 : 5 Para: 3 : 2 Ovarian Cysts: Yes Past Surgical History Abdominal Surgery: Yes (EX LAP) Social History Alcohol Use: Yes (OCCASIONALLY) Tobacco Use: Yes (1/2 ppd) Substance Use: Yes (SMOKES MARIJUANA) Allergies-Medications (Allergen,Severity, Reaction): Coded Allergies: No Known Allergies (Unverified Adverse Reaction, Unknown, 11/09/17) Reported Meds & Prescriptions Reported Meds & Active Scripts Active Reported Zofran (Ondansetron HCl) 4 Mg Tab 4 Mg PO Q6HR PRN Review of Systems General / Constitutional: Positive: Fever (subjective fevers), Chills Eyes: No: Visual changes HENT: No: Headaches Cardiovascular: No: Chest Pain or Discomfort Respiratory: No: Shortness of Breath Gastrointestinal: Positive: Nausea, Vomiting, Diarrhea, No: Abdominal Pain, Constipation Genitourinary: No: Urgency, Frequency, Dysuria Musculoskeletal: No: Pain Skin: No Rash Neurologic: No: Weakness, Dizziness, Syncope, Headache Psychiatric: No: Depression Endocrine: No: Polydipsia Hematologic/Lymphatic: No: Easy Bruising Physical Exam Narrative GENERAL: Mild distress SKIN: Focused skin assessment warm/dry. HEAD: Atraumatic. Normocephalic. EYES: Pupils equal and round. No scleral icterus. No injection or drainage. ENT: No nasal bleeding or discharge. Mucous membranes pink and moist. NECK: Trachea midline. No JVD. CARDIOVASCULAR: Regular rate and rhythm. No murmur appreciated. RESPIRATORY: No accessory muscle use. Clear to auscultation. Breath sounds equal bilaterally. GASTROINTESTINAL: Abdomen soft, non-tender, nondistended. Hepatic and splenic margins not palpable. MUSCULOSKELETAL: No obvious deformities. No clubbing. No cyanosis. No edema. NEUROLOGICAL: Awake and alert. Motor grossly within normal limits. Normal speech. PSYCHIATRIC: Appropriate mood and affect; insight and judgment normal. Data Data Last Documented VS Vital Signs Date Time Temp Pulse Resp B/P (MAP) Pulse Ox O2 Delivery O2 Flow Rate FiO2 11/09/17 11:10 16 99 Room Air 11/09/17 10:31 98.1 71 Orders Orders Complete Blood Count With Diff (11/09/17 10:59) Comprehensive Metabolic Panel (11/09/17 10:59) Urinalysis - C+S If Indicated (11/09/17 10:59) Iv Access Insert/Monitor (11/09/17 10:59) Ecg Monitoring (11/09/17 10:59) Oximetry (11/09/17 10:59) Ondansetron Inj (Zofran Inj) (11/09/17 11:00) Sodium Chlor 0.9% 1000 Ml Inj (Ns 1000 M (11/09/17 10:59) Sodium Chloride 0.9% Flush (Ns Flush) (11/09/17 11:00) Famotidine Inj (Pepcid Inj) (11/09/17 11:00) Dicyclomine (Bentyl) (11/09/17 11:00) Al-Mag Hy-Si 40-40-4 Mg/Ml Liq (Mag-Al P (11/09/17 11:00) Lidocaine 2% Viscous (Xylocaine 2% Visco (11/09/17 11:00) Ed Urine Pregnancytest Poc (11/09/17 10:59) Sodium Chlor 0.9% 1000 Ml Inj (Ns 1000 M (11/09/17 11:00) Urine Culture (11/09/17 11:00) Ceftriaxone Inj (Rocephin Inj) (11/09/17 12:15) Ceftriaxone Inj (Rocephin Inj) (11/09/17 12:20) Labs Laboratory Tests Test 11/09/17 11:00 11/09/17 11:10 Urine Color YELLOW Urine Turbidity HAZY Urine pH 6.0 Urine Specific Urania 1.030 Urine Protein 30 mg/dL Urine Glucose (UA) NEG mg/dL Urine Ketones NEG mg/dL Urine Occult Blood MOD Urine Nitrite NEG Urine Bilirubin NEG Urine Urobilinogen 2.0 MG/DL Urine Leukocyte Esterase LARGE Urine RBC 13 /hpf Urine WBC 16 /hpf Urine Squamous Epithelial Cells 20 /hpf Urine Bacteria FEW /hpf Urine Mucus MANY /lpf Microscopic Urinalysis Comment CULTURE INDICATED White Blood Count 7.2 TH/MM3 Red Blood Count 4.22 MIL/MM3 Hemoglobin 13.0 GM/DL Hematocrit 38.0 % Mean Corpuscular Volume 90.1 FL Mean Corpuscular Hemoglobin 30.7 PG Mean Corpuscular Hemoglobin Concent 34.1 % Red Cell Distribution Width 13.1 % Platelet Count 218 TH/MM3 Mean Platelet Volume 8.5 FL Neutrophils (%) (Auto) 55.0 % Lymphocytes (%) (Auto) 37.8 % Monocytes (%) (Auto) 6.1 % Eosinophils (%) (Auto) 0.7 % Basophils (%) (Auto) 0.4 % Neutrophils # (Auto) 4.0 TH/MM3 Lymphocytes # (Auto) 2.7 TH/MM3 Monocytes # (Auto) 0.4 TH/MM3 Eosinophils # (Auto) 0.0 TH/MM3 Basophils # (Auto) 0.0 TH/MM3 CBC Comment DIFF FINAL Differential Comment Blood Urea Nitrogen 9 MG/DL Creatinine 0.62 MG/DL Random Glucose 94 MG/DL Total Protein 7.7 GM/DL Albumin 3.6 GM/DL Calcium Level 8.8 MG/DL Alkaline Phosphatase 67 U/L Aspartate Amino Transf (AST/SGOT) 20 U/L Alanine Aminotransferase (ALT/SGPT) 27 U/L Total Bilirubin 0.4 MG/DL Sodium Level 139 MEQ/L Potassium Level 3.8 MEQ/L Chloride Level 108 MEQ/L Carbon Dioxide Level 25.2 MEQ/L Anion Gap 6 MEQ/L Estimat Glomerular Filtration Rate 115 ML/MIN [facility] Medical Decision Making Medical Screen Exam Complete: Yes Emergency Medical Condition: Yes Medical Record Reviewed: Yes Interpretation(s) Vital Signs Date Time Temp Pulse Resp B/P (MAP) Pulse Ox O2 Delivery O2 Flow Rate FiO2 11/09/17 10:48 16 11/09/17 10:31 98.1 71 12 126/76 (93) 100 Differential Diagnosis Gastritis, gastroenteritis, electrolyte abnormality Narrative Course 26-year-old female who presents to emergency room with complaints of nausea, vomiting and diarrhea for the past 3 days. Patient with no abdominal pain, reports that her children as well as her mother was sick with similar symptoms prior to onset of her symptoms During the course of the patients emergency department visit, the patients history, examination, and differential diagnosis were reviewed with the patient. The patient was placed on a lunchroom monitor with oximetry and frequent blood pressure monitoring. The patient had an IV access obtained and blood work sent for analysis. The patient was initially provided IVF, IV Zofran, and Bentyl The patients laboratory studies were reviewed and remarkable for: Laboratory Tests Test 11/09/17 11:00 11/09/17 11:10 Urine Color YELLOW (YELLW/STRAW) Urine Turbidity HAZY (CLEAR) Urine pH 6.0 (5.0-8.5) Urine Specific Urania 1.030 (1.002-1.035) Urine Protein 30 mg/dL (NEG-TRACE) Urine Glucose (UA) NEG mg/dL (NEG) Urine Ketones NEG mg/dL (NEG) Urine Occult Blood MOD (NEG) Urine Nitrite NEG (NEG) Urine Bilirubin NEG (NEG) Urine Urobilinogen 2.0 MG/DL (LESS THAN Urine Leukocyte Esterase LARGE (NEG) Urine RBC 13 /hpf (0-3) Urine WBC 16 /hpf (0-5) Urine Squamous Epithelial Cells 20 /hpf (0-5) Urine Bacteria FEW /hpf (NONE) Urine Mucus MANY /lpf (OCC) Microscopic Urinalysis Comment CULTURE INDICATED White Blood Count 7.2 TH/MM3 (4.0-11.0) Red Blood Count 4.22 MIL/MM3 (4.00-5.30) Hemoglobin 13.0 GM/DL (11.6-15.3) Hematocrit 38.0 % (35.0-46.0) Mean Corpuscular Volume 90.1 FL (80.0-100.0) Mean Corpuscular Hemoglobin 30.7 PG (27.0-34.0) Mean Corpuscular Hemoglobin Concent 34.1 % (32.0-36.0) Red Cell Distribution Width 13.1 % (11.6-17.2) Platelet Count 218 TH/MM3 (150-450) Mean Platelet Volume 8.5 FL (7.0-11.0) Neutrophils (%) (Auto) 55.0 % (16.0-70.0) Lymphocytes (%) (Auto) 37.8 % (9.0-44.0) Monocytes (%) (Auto) 6.1 % (0.0-8.0) Eosinophils (%) (Auto) 0.7 % (0.0-4.0) Basophils (%) (Auto) 0.4 % (0.0-2.0) Neutrophils # (Auto) 4.0 TH/MM3 (1.8-7.7) Lymphocytes # (Auto) 2.7 TH/MM3 (1.0-4.8) Monocytes # (Auto) 0.4 TH/MM3 (0-0.9) Eosinophils # (Auto) 0.0 TH/MM3 (0-0.4) Basophils # (Auto) 0.0 TH/MM3 (0-0.2) CBC Comment DIFF FINAL Differential Comment Blood Urea Nitrogen 9 MG/DL (7-18) Creatinine 0.62 MG/DL (0.50-1.00) Random Glucose 94 MG/DL (74-106) Total Protein 7.7 GM/DL (6.4-8.2) Albumin 3.6 GM/DL (3.4-5.0) Calcium Level 8.8 MG/DL (8.5-10.1) Alkaline Phosphatase 67 U/L (45-117) Aspartate Amino Transf (AST/SGOT) 20 U/L (15-37) Alanine Aminotransferase (ALT/SGPT) 27 U/L (10-53) Total Bilirubin 0.4 MG/DL (0.2-1.0) Sodium Level 139 MEQ/L (136-145) Potassium Level 3.8 MEQ/L (3.5-5.1) Chloride Level 108 MEQ/L (98-107) Carbon Dioxide Level 25.2 MEQ/L (21.0-32.0) Anion Gap 6 MEQ/L (5-15) Estimat Glomerular Filtration Rate 115 ML/MIN (>89) Patient reevaluated, patient feeling much better at this time. Abdomen is soft , nontender, nondistended, no peritoneal signs. I reviewed all labs and all studies as well as all findings with patient in detail. She request to be discharged to home at this time. She will follow up with her primary care doctor, she will return to the emergency room as needed. Patient thankful for care. Diagnosis Primary Impression: Nausea vomiting and diarrhea Additional Impression: UTI (urinary tract infection) Qualified Codes: N30.01 - Acute cystitis with hematuria Patient Instructions: General Instructions Additional Instructions: Please provide patient with a copy of their lab work and studies at discharge* * Please follow up with your primary care doctor in 2-3 days Return to the ER if symptoms worsen or progress Return to the ER as needed Please take all medications as prescribed Please eat a bland diet Follow-up with all cultures from today Med/Other Pt SpecificInfo: Prescription(s) given Scripts Nitrofurantoin Monohydrate Macrocrystals (Macrobid) 100 Mg Cap 100 MG PO BID for Infection for 10 Days, #20 CAP 0 Refills Prov: Shraddha Brooks DO 11/09/17 Disposition: 01 DISCHARGE HOME Condition: Stable Shraddha Brooks DO Nov 09, 2017 11:14
[2017-11-09 11:25] LABS: BASOPHIL % 0.4 % (0.0-2.0); EOSINOPHIL % 0.7 % (0.0-4.0); LYMPH % 37.8 % (9.0-44.0); LYMPHOCYTE # 2.7 TH/MM3 (1.0-4.8); MEAN CELL VOLUME 90.1 FL (80.0-100.0); MEAN CORPUSCULAR HEMOGLOBIN 30.7 PG (27.0-34.0); MEAN CORPUSCULAR HGB CONC 34.1 % (32.0-36.0); MEAN PLATELET VOLUME 8.5 FL (7.0-11.0); MONO % 6.1 % (0.0-8.0); MONOCYTE # 0.4 TH/MM3 (0-0.9); PLATELET COUNT 218 TH/MM3 (150-450); RED BLOOD COUNT 4.22 MIL/MM3 (4.00-5.30); RED CELL DISTRIBUTION WIDTH 13.1 % (11.6-17.2); WHITE BLOOD COUNT 7.2 TH/MM3 (4.0-11.0)
[2017-11-09 11:28] LABS: BACTERIA, URINE FEW /hpf; BILIRUBIN, URINE NEG (NEG); BLOOD, URINE MOD (NEG); GLUCOSE,URINE NEG (NEG); KETONE, URINE NEG (NEG); MUCUS URINE MANY /lpf (OCC); NITRITE,URINE NEG (NEG); SQUAMOUS EPITHELIAL CELL URINE 20 /hpf (0-5); URINE COLOR YELLOW (YELLW/STRAW); URINE LEUKOCYTE ESTERASE LARGE (NEG)
[2017-11-09 11:52] LABS: ALBUMIN 3.6 GM/DL (3.4-5.0); ALT (GPT) 27 U/L (10-53); AST (GOT) 20 U/L (15-37); BICARBONATE 25.2 MEQ/L (21.0-32.0); BLOOD UREA NITROGEN 9 MG/DL (7-18); CALCIUM 8.8 MG/DL (8.5-10.1); CHLORIDE 108 MEQ/L (98-107); CREATININE 0.62 MG/DL (0.50-1.00); GLOMERULAR FILTRATION RATE 115 ML/MIN (>89); GLUCOSE,RANDOM 94 MG/DL (74-106); SODIUM (NA) 139 MEQ/L (136-145); TOTAL BILIRUBIN ADULT 0.4 MG/DL (0.2-1.0); TOTAL PROTEIN 7.7 GM/DL (6.4-8.2)
[2017-11-09 11:54] LABS: ALKALINE PHOSPHATASE 67 U/L (45-117)
[2017-11-09] MEDS ORDERED: cefTRIAXone INJ 1,000 MG in SODIUM CHLORIDE 0.9% INJ 100 ML IV ONE (12:15)
[2017-11-09] MEDS ORDERED: MACR100C2 PO (13:35)
[2017-11-09 13:49] VITALS: BP 118/83; TEMP 98
== END 2017-11-09 13:50 | disposition home or self-care (01) ==
LOC: NEPD 10:30
DX: R11.2 Nausea with vomiting, unspecified (principal); R19.7 Diarrhea, unspecified; N39.0 Urinary tract infection, site not specified; B96.89 Other specified bacterial agents as the cause of diseases classified elsewhere; F41.9 Anxiety disorder, unspecified; K21.9 Gastro-esophageal reflux disease without esophagitis; I25.2 Old myocardial infarction; F17.200 Nicotine dependence, unspecified, uncomplicated; Z87.19 Personal history of other diseases of the digestive system
CPT/HCPCS: 80053; 81001; 84703; 85025; 87077; 87086; 87186; 96361; 96365; 96375; 99284; J0696; J2405; J7030

== ENCOUNTER 2018-03-21 16:59 | Emergency (ER) | payer MEDICAID ==
[~2018-03-21 16:59] MED LIST changes: -BACT800T5 PO; +MACR100C2 PO; -TRAM50TA PO; +ZOFR4TAB PO
[2018-03-21] MEDS ORDERED: IOHEXOL 350 MG/ML 10 ML VIAL (for RAD DIAG) IVCONTRAST ONE (17:00)
[2018-03-21 17:14] VITALS: BP 101/55; PULSE 69; RESP 20; TEMP 99.1; O2SAT 100
[2018-03-21 18:46] LABS: AUTOMATED NEUTROPHIL # 3.5 TH/MM3 (1.8-7.7); BASOPHIL % 0.4 % (0.0-2.0); EOSINOPHIL % 0.6 % (0.0-4.0); HEMATOCRIT 35.4 % (35.0-46.0); HEMOGLOBIN 12.1 GM/DL (11.6-15.3); LYMPH % 45.2 % (9.0-44.0); LYMPHOCYTE # 3.2 TH/MM3 (1.0-4.8); MEAN CELL VOLUME 89.5 FL (80.0-100.0); MEAN CORPUSCULAR HEMOGLOBIN 30.6 PG (27.0-34.0); MEAN CORPUSCULAR HGB CONC 34.2 % (32.0-36.0); MEAN PLATELET VOLUME 8.2 FL (7.0-11.0); MONO % 4.5 % (0.0-8.0); MONOCYTE # 0.3 TH/MM3 (0-0.9); NEUT % 49.3 % (16.0-70.0); PLATELET COUNT 252 TH/MM3 (150-450); RED BLOOD COUNT 3.96 MIL/MM3 (4.00-5.30); RED CELL DISTRIBUTION WIDTH 13.2 % (11.6-17.2); WHITE BLOOD COUNT 7.1 TH/MM3 (4.0-11.0)
[2018-03-21 18:54] LABS: ALBUMIN 3.8 GM/DL (3.4-5.0); AST (GOT) 18 U/L (15-37); BLOOD UREA NITROGEN 9 MG/DL (7-18); CALCIUM 9.3 MG/DL (8.5-10.1); CHLORIDE 107 MEQ/L (98-107); CREATININE 0.73 MG/DL (0.50-1.00); GLOMERULAR FILTRATION RATE 94 ML/MIN (>89); GLUCOSE,RANDOM 80 MG/DL (74-106); MAGNESIUM 1.9 MG/DL (1.5-2.5); SODIUM (NA) 140 MEQ/L (136-145)
[2018-03-21 18:55] LABS: ALT (GPT) 22 U/L (10-53)
[2018-03-21 18:59] LABS: ALKALINE PHOSPHATASE 65 U/L (45-117); TOTAL BILIRUBIN ADULT 0.3 MG/DL (0.2-1.0); TOTAL PROTEIN 7.8 GM/DL (6.4-8.2); TROPONIN I LESS THAN 0.02 NG/ML (0.02-0.05)
[2018-03-21] MEDS ORDERED: hydrOXYzine PAMOATE 25 MG CAP PO ONE (19:00)
[2018-03-21] MEDS ORDERED: SODIUM CHLOR 0.9% 1000 ML INJ 1,000 ML IV ONE (19:00)
[2018-03-21] MEDS ORDERED: KETOROLAC TROMETHAMINE 30 MG/ML (IVP) VIAL IV PUSH ONE (19:00)
--- NOTE | 2018-03-21 19:09 | RADRPT ---
EXAM DATE/TIME: 03/21/2018 18:53 [facility] COMPARISON: CHEST SINGLE AP, August 07, 2015, 11:14. INDICATIONS : Left chest pain for two hours. MEDICAL HISTORY : Cerebrovascular disease. SURGICAL HISTORY : None. ENCOUNTER: Initial ACUITY: 1 day PAIN SCORE: 9/10 LOCATION: Left chest FINDINGS: PA and lateral views of the chest demonstrate the lungs to be symmetrically aerated without evidence of mass, infiltrate or effusion. The cardiomediastinal contours are unremarkable. Osseous structure s are intact. CONCLUSION: No evidence of acute cardiopulmonary disease. Harrison Rollins MD on March 21, 2018 at 19:06 Board Certified Radiologist. This report was verified electronically.
--- NOTE | 2018-03-21 19:16 | PD ---
HPI Chief Complaint: Chest Pain Time Seen by Provider: 18:27 Travel History International Travel<30 days: No Contact w/Intl Traveler<30days: No Traveled to known affect area: No History of Present Illness HPI 27-year-old female presents to the emergency department for evaluation of left chest pain that started around noon today. Patient states that is intermittent , sharp and stabbing. She states that she raises her hand up, I will help alleviate the pain. She does state she has had this pain before was diagnosed with a muscle strain. Patient denies any cardiac history. She has no significant family cardiac history of sudden before the age of 40. Patient denies any shortness of breath. No vomiting. No abdominal pain. She denies . States the current pain is 7/10, without radiation. No exacerbating factors. Moderate severity. PFSH Past Medical History Anxiety: Yes Cerebrovascular Accident: Yes Diminished Hearing: No Gastrointestinal Disorders: Yes (IBS) GERD: Yes Kidney Stones: Yes Reproductive: Yes (UTERINE FIBROID) Immunizations Current: Yes Myocardial Infarction: Yes (STATES SHE HAD ONE A YEAR AGO, EVAC STATES SENT TO [facility]) ?: Unknown LMP: 1 MONTH AGO : 5 Para: 3 : 2 Ovarian Cysts: Yes Past Surgical History Abdominal Surgery: Yes (ex - 2008) Social History Alcohol Use: Yes (5 times per year. last use 1wk ago) Tobacco Use: Yes (1/2 pack of day. today) Substance Use: No Allergies-Medications (Allergen,Severity, Reaction): Coded Allergies: No Known Allergies (Unverified Adverse Reaction, Unknown, 03/21/18) Reported Meds & Prescriptions Reported Meds & Active Scripts Active Ibuprofen 600 Mg Tab 600 Mg PO TID PRN Reported Zofran (Ondansetron HCl) 4 Mg Tab 4 Mg PO Q6HR PRN Review of Systems Except as stated in HPI: all other systems reviewed are Neg Physical Exam Narrative GENERAL: Well-nourished, well-developed female patient, afebrile. SKIN: Focused skin assessment warm/dry. HEAD: Normocephalic. Atraumatic. EYES: No scleral icterus. No injection or drainage. NECK: Supple, trachea midline. No JVD or lymphadenopathy. CARDIOVASCULAR: Regular rate and rhythm without murmurs, gallops, or rubs. Bilateral radial and pedal pulses are 2+ RESPIRATORY: Breath sounds equal bilaterally. No accessory muscle use. Lung sounds are clear to auscultation. GASTROINTESTINAL: Abdomen soft, non-tender, nondistended. MUSCULOSKELETAL: No cyanosis, or edema. Left sided chest wall pain is reproducible with palpation. BACK: Nontender without obvious deformity. No CVA tenderness. Data Data Last Documented VS Vital Signs Date Time Temp Pulse Resp B/P (MAP) Pulse Ox O2 Delivery O2 Flow Rate FiO2 03/21/18 18:29 56 Room Air 03/21/18 17:14 99.1 20 101/55 (70) 100 Orders Orders Electrocardiogram (03/21/18 17:17) Ckmb (Isoenzyme) Profile (03/21/18 17:17) Complete Blood Count With Diff (03/21/18 17:17) Comprehensive Metabolic Panel (03/21/18 17:17) D-Dimer (03/21/18 17:17) Magnesium (Mg) (03/21/18 17:17) Troponin I (03/21/18 17:17) Lipase (03/21/18 17:17) Chest, Pa & Lat (03/21/18 17:17) Ed Urine Pregnancytest Poc (03/21/18 17:17) Hydroxyzine Pamoate (Vistaril) (03/21/18 19:00) Ketorolac Inj (Toradol Inj) (03/21/18 19:00) Sodium Chlor 0.9% 1000 Ml Inj (Ns 1000 M (03/21/18 19:00) Iv Access Insert/Monitor (03/21/18 19:02) Ct Pulmonary Angiogram (03/21/18 ) Iohexol 350 Inj (Omnipaque 350 Inj) (03/21/18 17:00) Acetaminophen (Tylenol) (03/21/18 20:30) Labs Laboratory Tests Test 03/21/18 17:35 White Blood Count 7.1 TH/MM3 Red Blood Count 3.96 MIL/MM3 Hemoglobin 12.1 GM/DL Hematocrit 35.4 % Mean Corpuscular Volume 89.5 FL Mean Corpuscular Hemoglobin 30.6 PG Mean Corpuscular Hemoglobin Concent 34.2 % Red Cell Distribution Width 13.2 % Platelet Count 252 TH/MM3 Mean Platelet Volume 8.2 FL Neutrophils (%) (Auto) 49.3 % Lymphocytes (%) (Auto) 45.2 % Monocytes (%) (Auto) 4.5 % Eosinophils (%) (Auto) 0.6 % Basophils (%) (Auto) 0.4 % Neutrophils # (Auto) 3.5 TH/MM3 Lymphocytes # (Auto) 3.2 TH/MM3 Monocytes # (Auto) 0.3 TH/MM3 Eosinophils # (Auto) 0.0 TH/MM3 Basophils # (Auto) 0.0 TH/MM3 CBC Comment DIFF FINAL Differential Comment D-Dimer Quantitative (PE/DVT) 2.63 MG/L FEU Blood Urea Nitrogen 9 MG/DL Creatinine 0.73 MG/DL Random Glucose 80 MG/DL Total Protein 7.8 GM/DL Albumin 3.8 GM/DL Calcium Level 9.3 MG/DL Magnesium Level 1.9 MG/DL Alkaline Phosphatase 65 U/L Aspartate Amino Transf (AST/SGOT) 18 U/L Alanine Aminotransferase (ALT/SGPT) 22 U/L Total Bilirubin 0.3 MG/DL Sodium Level 140 MEQ/L Potassium Level 3.4 MEQ/L Chloride Level 107 MEQ/L Carbon Dioxide Level 25.0 MEQ/L Anion Gap 8 MEQ/L Estimat Glomerular Filtration Rate 94 ML/MIN Total Creatine Kinase 41 U/L Troponin I LESS THAN 0.02 NG/ML Lipase 89 U/L [facility] Medical Decision Making Medical Screen Exam Complete: Yes Emergency Medical Condition: Yes Medical Record Reviewed: Yes Interpretation(s) Last Impressions Chest X-Ray 03/21/18 1717 Signed Impressions: Service Date/Time: Wednesday, March 21, 2018 18:53 - CONCLUSION: No evidence of acute cardiopulmonary disease. Harrison Rollins MD CT Angiography 03/21/18 0000 Signed Impressions: Service Date/Time: Wednesday, March 21, 2018 19:44 - CONCLUSION: No pulmonary embolus or other acute abnormality. Harrison Rollins MD Differential Diagnosis chest wall pain vs. ACS vs. pneumothorax vs. PE Narrative Course 27 year old female presents to the emergency department for evaluation of left chest pain. EKG shows sinus rhythm, heart rate 70, no acute ST changes. CBC, CMP, CK, troponin, magnesium, lipase, d-dimer are ordered in triage. A urine test is negative. Chest x-ray is ordered and pending. Patient is given normal saline 1 L IV bolus, Toradol 30 mg IV, Vistaril 25 mg by mouth. CBC shows no acute abnormality. CMP shows no acute abnormality. Magnesium is 1.9. CK is 41. Troponin is less than 0.02. D-dimer is 2.63. CT pulmonary angiogram is ordered and pending. CT pulmonary angiogram is negative for PE. Patient is stable for discharge home. Patient started to follow primary care physician. She'll be discharged with a prescription for ibuprofen for pain. The patient was discharged in stable condition with instructions, including return instructions and follow up instructions. Diagnosis Primary Impression: Chest wall pain Additional Impression: Anxiety Referrals: Primary Care Physician call for appointment Patient Instructions: Anxiety (ED), Chest Wall Pain (ED), General Instructions Departure Forms: Tests/Procedures, Work Release Enter return to work date: Mar 24, 2018 Additional Instructions: Take ibuprofen as instructed as needed with food for pain. Follow-up with your primary care physician. Return to the emergency department for any acute worsening of symptoms. Med/Other Pt SpecificInfo: Prescription(s) given Scripts Ibuprofen (Ibuprofen) 600 Mg Tab 600 MG PO TID Y for PAIN SCALE 1 TO 10, #21 TAB 0 Refills Prov: Elisa Adam 03/21/18 Disposition: DISCHARGE HOME Condition: Stable Elisa Adam Mar 21, 2018 19:16
--- NOTE | 2018-03-21 20:20 | RADRPT ---
EXAM DATE/TIME: 03/21/2018 19:44 [place] COMPARISON: No previous studies available for comparison. INDICATIONS : Chest pain IV CONTRAST: 65 cc Omnipaque 350 (iohexol) IV RADIATION DOSE: 9.9 CTDIvol (mGy) MEDICAL HISTORY : Cardiovascular disease. SURGICAL HISTORY : None. ENCOUNTER: Initial ACUITY: 1 day PAIN SCALE: 8/10 LOCATION: chest TECHNIQUE: Volumetric scanning of the chest was performed using a pulmonary embolism protocol MIP images were re constructed. Using automated exposure control and adjustment of the mA and/or kV according to patien t size, radiation dose was kept as low as reasonably achievable to obtain optimal diagnostic quality images. DICOM format image data is available electronically for review and comparison. Follow-up recommendations for detected pulmonary nodules are based at a minimum on nodule size and pa tient risk factors according to Fleischner Society Guidelines. FINDINGS: PULMONARY ARTERIES: No filling defects are seen in the pulmonary arteries through the segmental level. LUNGS: There is no consolidation or pneumothorax . No concerning pulmonary nodule is visualized. PLEURAE: There is no pleural thickening or pleural effusion. MEDIASTINUM: There is good visualization of the great vessels of the middle mediastinum. No evidence of mediastin al or hilar adenopathy/mass. MUSCULOSKELETAL: Within normal limits for patient age. MISCELLANEOUS: The visualized upper abdominal organs demonstrate no acute abnormality. CONCLUSION: No pulmonary embolus or other acute abnormality. Harrison Rollins MD on March 21, 2018 at 20:17 Board Certified Radiologist. This report was verified electronically.
[2018-03-21] MEDS ORDERED: ACETAMINOPHEN 325 MG TAB PO ONE (20:30)
[2018-03-21] MEDS ORDERED: IBUP-232 PO (21:13)
--- NOTE | 2018-03-21 21:20 | PD ---
Physical Exam Narrative I, Dr. Haddad, have reviewed the advance practice practitioner's documentation and am in agreement, met with the patient face to face, made the diagnosis, and the medical decision making was done by me. *My assessment and Findings: Musculoskeletal pain vs. atypical chest pain vs. GERD vs. anxiety 27yo F with very atypical left sided chest pain today. Pt has no risk factors. Pt's labs were drawn from triage and showed no leukocytosis. Troponin negative. D-dimer showed 2.63. CXR showed no evidence of acute cardiopulmonary disease. CT angio showed no PE. No family history of sudden cardiac deaths. Pt given toradol and acetaminophen and pain is improved. Return precautions given. Data Data Last Documented VS Vital Signs Date Time Temp Pulse Resp B/P (MAP) Pulse Ox O2 Delivery O2 Flow Rate FiO2 03/21/18 18:29 56 Room Air 03/21/18 17:14 99.1 20 101/55 (70) 100 Orders Orders Electrocardiogram (03/21/18 17:17) Ckmb (Isoenzyme) Profile (03/21/18 17:17) Complete Blood Count With Diff (03/21/18 17:17) Comprehensive Metabolic Panel (03/21/18 17:17) D-Dimer (03/21/18 17:17) Magnesium (Mg) (03/21/18 17:17) Troponin I (03/21/18 17:17) Lipase (03/21/18 17:17) Chest, Pa & Lat (03/21/18 17:17) Ed Urine Pregnancytest Poc (03/21/18 17:17) Hydroxyzine Pamoate (Vistaril) (03/21/18 19:00) Ketorolac Inj (Toradol Inj) (03/21/18 19:00) Sodium Chlor 0.9% 1000 Ml Inj (Ns 1000 M (03/21/18 19:00) Iv Access Insert/Monitor (03/21/18 19:02) Ct Pulmonary Angiogram (03/21/18 ) Iohexol 350 Inj (Omnipaque 350 Inj) (03/21/18 17:00) Acetaminophen (Tylenol) (03/21/18 20:30) Ed Discharge Order (03/21/18 21:16) Labs Laboratory Tests Test 03/21/18 17:35 White Blood Count 7.1 TH/MM3 Red Blood Count 3.96 MIL/MM3 Hemoglobin 12.1 GM/DL Hematocrit 35.4 % Mean Corpuscular Volume 89.5 FL Mean Corpuscular Hemoglobin 30.6 PG Mean Corpuscular Hemoglobin Concent 34.2 % Red Cell Distribution Width 13.2 % Platelet Count 252 TH/MM3 Mean Platelet Volume 8.2 FL Neutrophils (%) (Auto) 49.3 % Lymphocytes (%) (Auto) 45.2 % Monocytes (%) (Auto) 4.5 % Eosinophils (%) (Auto) 0.6 % Basophils (%) (Auto) 0.4 % Neutrophils # (Auto) 3.5 TH/MM3 Lymphocytes # (Auto) 3.2 TH/MM3 Monocytes # (Auto) 0.3 TH/MM3 Eosinophils # (Auto) 0.0 TH/MM3 Basophils # (Auto) 0.0 TH/MM3 CBC Comment DIFF FINAL Differential Comment D-Dimer Quantitative (PE/DVT) 2.63 MG/L FEU Blood Urea Nitrogen 9 MG/DL Creatinine 0.73 MG/DL Random Glucose 80 MG/DL Total Protein 7.8 GM/DL Albumin 3.8 GM/DL Calcium Level 9.3 MG/DL Magnesium Level 1.9 MG/DL Alkaline Phosphatase 65 U/L Aspartate Amino Transf (AST/SGOT) 18 U/L Alanine Aminotransferase (ALT/SGPT) 22 U/L Total Bilirubin 0.3 MG/DL Sodium Level 140 MEQ/L Potassium Level 3.4 MEQ/L Chloride Level 107 MEQ/L Carbon Dioxide Level 25.0 MEQ/L Anion Gap 8 MEQ/L Estimat Glomerular Filtration Rate 94 ML/MIN Total Creatine Kinase 41 U/L Troponin I LESS THAN 0.02 NG/ML Lipase 89 U/L MDM Supervised Visit with MANSI: Yes Interpretation(s) EKG: NSR 70bpm. Normal axis. TWI V2. Diagnosis Primary Impression: Chest wall pain Additional Impression: Anxiety Referrals: Primary Care Physician call for appointment Patient Instructions: General Instructions, Anxiety (ED), Chest Wall Pain (ED) Departure Forms: Work Release, Enter return to work date: Tests/Procedures Additional Instruction: Take ibuprofen as instructed as needed with food for pain. Follow-up with your primary care physician. Return to the emergency department for any acute worsening of symptoms. Scripts Ibuprofen (Ibuprofen) 600 Mg Tab 600 MG PO TID Y for PAIN SCALE 1 TO 10, #21 TAB 0 Refills Prov: Elisa Adam 03/21/18 Disposition: 01 DISCHARGE HOME Condition: Stable Trini Haddad DO Mar 21, 2018 21:20
[2018-03-21 21:45] VITALS: BP 115/76
--- NOTE | 2018-03-22 09:06 | EKG ---
Date Performed: 03/21/2018 Time Performed: 17:31:51 PTAGE: 27 years EKG: Sinus rhythm WITH SINUS ARRHYTHMIA NORMAL ECG INTERPRETATION BASED ON A DEFAULT AGE OF 38 YEARS NO PREVIOUS TRACING DOCTOR: Vincent Angel Interpretating Date/Time 03/22/2018 09:05:56
== END 2018-03-21 21:45 | disposition home or self-care (01) ==
LOC: NEPC 16:59
DX: R07.89 Other chest pain (principal); F41.9 Anxiety disorder, unspecified; F17.200 Nicotine dependence, unspecified, uncomplicated
CPT/HCPCS: 71046; 71275; 80053; 82550; 83690; 83735; 84484; 84703; 85025; 85379; 93005; 96361; 96374; 99285; J1885; J7030; Q0177; Q9967